=== PATIENT | male | born 1985 | race Caucasian/White ===

== ENCOUNTER → 2021-11-20 13:28 | Outpatient (BNVA) | payer OTHER, SELFPAY | PROVIDERS: PCP Nurse Practitioner Family; Visit Provider Anesthesiology | DX: M54.9 Dorsalgia, unspecified (principal); M54.2 Cervicalgia; G89.4 Chronic pain syndrome | CPT/HCPCS: 99202 ==

== ENCOUNTER → 2021-12-18 12:47 | Outpatient (BNVA) | payer OTHER, SELFPAY | PROVIDERS: PCP Nurse Practitioner Family; Visit Provider Nurse Practitioner Family | DX: M54.2 Cervicalgia (principal); M54.9 Dorsalgia, unspecified; M62.838 Other muscle spasm; G89.4 Chronic pain syndrome | CPT/HCPCS: 99212 ==

== ENCOUNTER → 2022-02-21 13:20 | Outpatient (BNVA) | payer OTHER, SELFPAY | PROVIDERS: PCP Nurse Practitioner Family; Visit Provider Anesthesiology | DX: M54.9 Dorsalgia, unspecified (principal); M54.2 Cervicalgia; G89.4 Chronic pain syndrome; M48.02 Spinal stenosis, cervical region; M54.16 Radiculopathy, lumbar region; M51.36 Other intervertebral disc degeneration, lumbar region | CPT/HCPCS: 99212 ==

== ENCOUNTER 2022-03-07 18:48 | Outpatient (REF) | payer OTHER, SELFPAY ==
--- NOTE | ~2022-03-07 | MR_ITS ---
EXAMINATION: MR LUMBAR SPINE WITHOUT CONTRAST CLINICAL INFORMATION: Radiculopathy. Disc degeneration. Patient reports injury, low back pain. COMPARISON: None TECHNIQUE: MRI of the lumbar spine was obtained using routine sequences without contrast. FINDINGS: VERTEBRAL BODIES AND PARASPINAL STRUCTURES: Vertebral body alignment is anatomic sagittal plane. Vertebral body heights are maintained. No evidence of acute fracture. There is a mild disc height loss at T11-12, T12-L1. Marrow signal is within normal limits. The visualized retroperitoneal structures appear unremarkable. Bilateral psoas and paraspinal musculature appears unremarkable. CONUS MEDULLARIS AND CAUDA EQUINA: Normal, terminating at the level of L1. SPINAL LEVELS: T12-L1: Disc contour is within normal limits. No central canal or foraminal stenosis. L1-L2: Disc contour is within normal limits. No central canal or foraminal stenosis. L2-L3: Disc contour is within normal limits. No central canal or foraminal stenosis. L3-L4: Minimal broad-based posterior annulus disc bulge. No central canal or neural foramen stenosis. L4-L5: Minimal broad-based posterior disc bulge. No central canal or foraminal stenosis. L5-S1: Disc contour is within normal limits. No central canal or foraminal stenosis. MR/MR lumbar spine wo con IMPRESSION: -No evidence of acute osseous abnormality -Minimal broad-based posterior disc bulge at L3-4, L4-5. No central canal or neural foramen stenosis.
== END 2022-03-07 18:49 | disposition home or self-care (01) ==
LOC: HO.MRI 18:48
PROVIDERS: Visit Provider Anesthesiology
DX: M51.36 Other intervertebral disc degeneration, lumbar region (principal); M54.16 Radiculopathy, lumbar region
CPT/HCPCS: 72148

== ENCOUNTER → 2022-05-10 11:01 | Outpatient (BNVA) | payer OTHER, MEDICAID, SELFPAY | PROVIDERS: PCP Nurse Practitioner Family; Visit Provider Anesthesiology | DX: M54.9 Dorsalgia, unspecified (principal); M54.2 Cervicalgia; M48.02 Spinal stenosis, cervical region; M54.16 Radiculopathy, lumbar region; M51.36 Other intervertebral disc degeneration, lumbar region; G89.4 Chronic pain syndrome | CPT/HCPCS: 99212 ==